=== PATIENT | female | born 1940 | race Two or more races ===

== ENCOUNTER 2020-08-28 11:40 | Emergency (ER) | payer MEDICARE, OTHER ==
[2020-08-28 11:59] VITALS: BMI 31.1
[2020-08-28 13:26] LABS: EOS % 4.5 % (0-4.5); HEMATOCRIT 25.7 % (32.4-45.2); HEMOGLOBIN 8.4 GM/dL (10.7-15.3); LYMPH % 27.3 % (8-40); MCH 27.5 pg (25.7-33.7); MCHC 32.6 g/dl (32.0-36.0); MEAN CELL VOLUME 84.3 fl (80-96); MEAN PLT VOLUME 9.4 fl (7.5-11.1); MONO % 9.9 % (3.8-10.2); NEUT % 57.3 % (42.8-82.8); PLATELET COUNT 309 K/MM3 (134-434); RBC 3.05 M/mm3 (3.60-5.2); RDW 14.8 % (11.6-15.6); WHITE BLOOD COUNT 7.8 K/mm3 (4.0-10.0)
[2020-08-28 13:39] LABS: INR 0.87 (0.83-1.09); PROTHROMBIN TIME (PATIENT) 10.6 SEC (9.7-13.0)
[2020-08-28 13:50] LABS: ALBUMIN 2.9 g/dl (3.4-5.0); BLOOD UREA NITROGEN 13.3 mg/dL (7-18); CALCIUM 8.7 mg/dL (8.5-10.1); MAGNESIUM 2.3 mg/dL (1.8-2.4)
[2020-08-28 13:53] LABS: PHOSPHOROUS 4.4 mg/dL (2.5-4.9)
[2020-08-28 13:55] LABS: BILIRUBIN,TOTAL 0.2 mg/dL (0.2-1); CREATININE 1.4 mg/dL (0.55-1.3); TOT PROT 5.6 g/dl (6.4-8.2)
[2020-08-28 14:38] LABS: EPI CELLS 2 /uL (0-25.1); HYALINE CASTS 1 /uL (0-3.1); URINE APPEARANCE CLOUDY; URINE BACTERIA 5319 /uL (0-1359); URINE BILIRUBIN NEGATIVE (NEGATIVE); URINE COLOR YELLOW; URINE GLUCOSE (UA) NEGATIVE (NEGATIVE); URINE KETONE NEGATIVE (NEGATIVE); URINE LEUK ESTERASE 1+ (NEGATIVE); URINE NITRITE NEGATIVE (NEGATIVE); URINE PROTEIN NEGATIVE (NEGATIVE); URINE RBC 4 /uL (0-23.9); URINE UROBILINOGEN 0.2 mg/dL (0.2-1.0); URINE WBC 125 /uL (0-25.8)
[2020-08-28 16:30] VITALS: BP 151/60; PULSE 90; TEMP 98.3
== END 2020-08-28 16:40 | disposition home or self-care (01) ==
LOC: JER 11:40
DX: N39.0 Urinary tract infection, site not specified (principal)
CPT/HCPCS: 36415; 80053; 81003; 82272; 82746; 83735; 84100; 85025; 85610; 86850; 86900; 86901; 87086; 99284-25; C9803; U0003; U0005